=== PATIENT | female | born 1960 | race Caucasian/White ===

== ENCOUNTER → 2020-01-24 | Outpatient (CLI) | payer OTHER | END | disposition home or self-care (01) | LOC: CVU 13:49 | PROVIDERS: ATTEND Internal Medicine Cardiovascular Disease | DX: Z13.6 Encounter for screening for cardiovascular disorders (principal); I08.2 Rheumatic disorders of both aortic and tricuspid valves; I10 Essential (primary) hypertension; Z85.41 Personal history of malignant neoplasm of cervix uteri | CPT/HCPCS: 75571; 93306 ==

== ENCOUNTER 2020-10-11 10:07 | Day surgery (SDC) | payer OTHER ==
[2020-10-08 15:36] LABS: BASOPHILS % (AUTO) 1 % (0-1); EOSINOPHILS % (AUTO) 2 % (1-7); LYMPHOCYTES % (AUTO) 26 % (22-44); MEAN CORPUSCULAR HEMOGLOBIN 32.2 pg (27.0-34.8); MEAN CORPUSCULAR HGB CONC 34.3 g/dL (32.4-35.8); MEAN PLATELET VOLUME 8.2 fL (7.4-10.4); MONOCYTES % (AUTO) 10 % (2-9); NEUTROPHILS % (AUTO) 62 % (42-75); PLATELET COUNT 290 x10^3/uL (130-400); RED BLOOD COUNT 4.79 x10^6/uL (3.82-5.3); RED CELL DISTRIBUTION WIDTH 12.7 % (9.6-15.2)
[2020-10-08 15:38] LABS: MD NO
[2020-10-08 15:42] LABS: ALBUMIN 3.9 g/dL (3.4-5.0); ANION GAP 6 mmol/L (5-15); CALCIUM 9.6 mg/dL (8.5-10.1); CHLORIDE 108 mmol/L (98-107)
[2020-10-08 15:45] LABS: ALANINE AMINOTRANSFERASE 60 U/L (12-78); ALKALINE PHOSPHATASE 105 U/L (45-117); BILIRUBIN,TOTAL 0.5 mg/dL (0.2-1.0); CREATININE 0.88 mg/dL (0.55-1.02)
[2020-10-08 16:13] LABS: MICROSCOPIC INDICATED
[~2020-10-11] VITALS: Ht 165.1 cm; Wt 87.5 kg
[~2020-10-11 10:07] MED LIST: BUPIVACAINE/PF 0.25% ONE; CYAN50008 PO; CYTOMEL PO; FLUORESCEIN SODIUM 500 MG/5 ML ONE; LEVO175T2 PO; LISINOPRIL/HCTZ PO; MULT-658 PO; VITAMIN D3 PO; VITAMIN E PO
[2020-10-11 10:28] VITALS: BP 126/89
[2020-10-11] MEDS ORDERED: LACTATED RINGERS 1,000 ML IV SCH (10:30)
[2020-10-11] MEDS ORDERED: ANTIBIOTIC PO (10:31)
[2020-10-11] MEDS ORDERED: FENTANYL PF 100 MCG/2ML ONE (10:48)
[2020-10-11] MEDS ORDERED: MIDAZOLAM 1 MG/ML, 2ML ONE (10:48)
[2020-10-11] MEDS ORDERED: CHLORHEXIDINE 15 ML UDC MM ONE (11:00)
[2020-10-11] MEDS ORDERED: GABAPENTIN 300 MG CAPSULE PO ONE (11:00)
[2020-10-11] MEDS ORDERED: ACETAMINOPHEN 500 MG TABLET PO ONE (11:00)
[2020-10-11] MEDS ORDERED: LABETALOL 5MG/ML, 20ML IV PRN (12:30)
[2020-10-11] MEDS ORDERED: MEPERIDINE/PF 25MG/0.5ML IVPush PRN (12:30)
[2020-10-11] MEDS ORDERED: METHOCARBAMOL 1,000 MG in DEXTROSE 5% 100 ML IV PRN (12:30)
[2020-10-11] MEDS ORDERED: LORazepam 2 MG/ML, 1ML IVPush PRN (12:30)
[2020-10-11] MEDS ORDERED: HYDROmorphone 1 MG/ML, 1ML INJ IVPush PRN (12:30)
[2020-10-11] MEDS ORDERED: FENTANYL PF 100 MCG/2ML IV PRN (12:30)
[2020-10-11] MEDS ORDERED: ALBUTEROL SULFATE 2.5 MG/3 ML NPPB PRN (12:30)
[2020-10-11] MEDS ORDERED: OXYcodone 5 MG/5 ML ORAL.SOL UDC PO PRN (12:30)
[2020-10-11] MEDS ORDERED: hydrALAzine 20 MG/ML, 1ML IV PRN (12:30)
[2020-10-11] MEDS ORDERED: PROMETHAZINE 25 MG/ML, 1ML IVPush PRN (12:30)
[2020-10-11] MEDS ORDERED: KETOROLAC 30 MG/1 ML ONE (12:46)
[2020-10-11] MEDS ORDERED: GLYCOPYRROLATE 0.2MG/1ML, 5ML ONE (12:46)
[2020-10-11] MEDS ORDERED: PROPOFOL 10 MG/ML, 20ML ONE (12:46)
[2020-10-11] MEDS ORDERED: CEFAZOLIN 1,000 MG ONE (12:46)
[2020-10-11] MEDS ORDERED: ONDANSETRON 2MG/ML, 2ML ONE (12:46)
[2020-10-11] MEDS ORDERED: ROCURONIUM 10MG/ML,5ML ONE (12:46)
[2020-10-11] MEDS ORDERED: LIDOCAINE-MPF 2% ,5ML ONE (12:46)
[2020-10-11] MEDS ORDERED: NEOSTIGMINE 1 MG/ML, 10ML ONE (12:46)
== END 2020-10-11 16:10 | disposition home or self-care (01) ==
LOC: OUT 10:07 → EDSTATUS 11:00 → OUT 16:10
PROVIDERS: ATTEND Obstetrics & Gynecology
DX: E28.1 Androgen excess (principal); D25.0 Submucous leiomyoma of uterus; N83.8 Other noninflammatory disorders of ovary, fallopian tube and broad ligament; N73.6 Female pelvic peritoneal adhesions (postinfective); Z20.822 Contact with and (suspected) exposure to COVID-19; Z79.899 Other long term (current) drug therapy; Z98.51 Tubal ligation status
CPT/HCPCS: 36415; 58661; 80053; 81001; 85025; 87086; 87147; 88305; 93005; J0690; J1885; J2250; J2405; J2704; J2710; J3010; J7120; U0003